=== PATIENT | male | born 1970 | race Caucasian/White ===

== ENCOUNTER 2020-06-19 09:23 | Emergency (ER) | payer OTHER, SELFPAY ==
--- NOTE | 2020-06-19 09:30 | ED_ITS ---
HPI - Abdominal Pain General Chief Complaint: Abdominal Pain Stated Complaint: ABDOMINAL PAIN Time Seen by Provider: 06/19/20 09:30 History of Present Illness HPI narrative: 50-year-old gentleman with a history of hyperlipidemia and is otherwise healthy. He woke last night with left lower quadrant pain that is getting progressively worse. This point he describes it as tolerable worse when he is up and moving but concerning and consistently notable. He describes no fevers, cough, chest pain, dyspnea, vomiting or diarrhea. He notes a normal bowel movement this morning that did not influences pain. He has had no blood in his stools. There is no dysuria or urgency Related Data Home Medications Medication Instructions Recorded Confirmed aspirin 81 mg tablet,delayed 81 mg PO DAILY 06/19/20 06/19/20 release atorvastatin 40 mg tablet 40 mg PO DAILY 06/19/20 06/19/20 Previous Rx's Medication Instructions Recorded amoxicillin-pot clavulanate 1 tab PO BID #20 tab 06/19/20 [Augmentin] Allergies Allergy/AdvReac Type Severity Reaction Status Date / Time No Known Drug Allergies Allergy Verified 06/19/20 09:34 Review of Systems Review of Systems Narrative: Remainder of review of systems including constitutional, ENT, cardiovascular, respiratory, GI, , musculoskeletal, skin, neurologic and psychiatric systems reviewed and are unremarkable except as noted in HPI. Patient History Medical History Hyperlipidemia Social History Smoking Status: Never smoker Smoking Status: Never smoker Exam Narrative Exam Narrative: General: Healthy appearing, in no acute distress. Able to give a complete and coherent history. Well-nourished well-developed HEENT: Moist mucous membranes, normal sclera with reactive pupils, Neck: No JVD, supple Respiratory: Lungs are clear to auscultation, no wheezing no rales no rhonchi. Full and symmetrical air movement Cardiac: Regular rate and rhythm no murmurs no bruits Abdomen: Soft, mild guarding without rebound and tenderness in the left lower quadrant, good bowel tones, no flank pain Skin: Warm and dry, no rashes Neurologic: Grossly neurologically intact with no obvious asymmetries or abnormalities Extremities: No trauma, well perfused Psych: Cooperative, appropriate insight and affect Initial Vital Signs Initial Vital Signs: Vital Signs Temperature 98.3 F 06/19/20 09:34 Pulse Rate 77 06/19/20 09:34 Respiratory Rate 18 06/19/20 09:34 Blood Pressure 155/95 H 06/19/20 09:34 Pulse Oximetry 99 06/19/20 09:34 Course Orders Ordered: ED Orders 06/19/20 09:43 CT abdomen pelvis w con Stat 06/19/20 09:50 Complete Blood Count AUTO DIFF Stat Comprehensive Metabolic Panel Stat Lactate (Lactic Acid) Stat Lipase Stat Amoxicillin/Clavulanate Potassium (Amoxicillin/Clav 875/125 Mg) 1 tab PO NOW ONE Stop: 06/19/20 11:13 Vital Signs Vital signs: Vital Signs - 8 hr 06/19/20 09:34 06/19/20 11:04 Temperature 98.3 F Pulse Rate 77 66 Respiratory Rate 18 16 Blood Pressure 155/95 H 139/87 Pulse Oximetry 99 98 MDM - Abdominal Pain Medical Records Attestation: I reviewed the patient's medical records. Lab Data Attestation: I reviewed the patient's lab results. Result diagrams: 06/19/20 09:50 06/19/20 09:50 Labs: Lab Results 06/19/20 06/19/20 06/19/20 Range/Units 09:50 09:50 09:50 WBC 13.1 H (4.5-11.0) X10^3/uL RBC 5.33 (4.5-5.9) X10^6/uL Hgb 15.2 (13.5-17.5) g/dL Hct 45.1 (41-53) % MCV 84.7 (80-100) fL MCH 28.5 (26-34) PG MCHC 33.7 (30-36) % RDW 12.8 (11.6-14.8) % Plt Count 202 (150-400) X10^3/uL Neut % (Auto) 78.3 H (50-75) % Lymph % (Auto) 11.2 L (25-40) % [place] % (Auto) 9.2 (3-14) % Eos % (Auto) 0.6 L (2-4) % Baso % (Auto) 0.7 (0-2) % Neut # (Auto) 50141 H (9196-2236) /uL Lymph # (Auto) 1500 (0479-9295) /uL [place] # (Auto) 1200 H (0-900) /uL Eos # (Auto) 100 (0-450) /uL Baso # (Auto) 100 (0-100) /uL Sodium 137 (137-145) mmol/L Potassium 4.3 (3.4-5.1) mmol/L Chloride 103 (98-107) mmol/L Carbon Dioxide 27 (22-32) mmol/L BUN 15 (9-20) mg/dL Creatinine 0.77 (0.66-1.25) mg/dL Estimated GFR > 60.0 (>60) mL/min BUN/Creatinine Ratio 19.5 (6-22) Glucose 118 H (70-100) mg/dL Lactate 1.6 (0.7-2.1) mmol/L Calcium 9.2 (8.4-10.2) mg/dL Total Bilirubin 1.0 (0.2-1.3) mg/dL AST 30 (17-59) IU/L ALT 49 (<50) IU/L Alkaline Phosphatase 128 H (38-126) U/L Total Protein 7.8 (6.3-8.2) g/dL Albumin 4.4 (3.5-5.0) g/dL Globulin 3.4 (1.7-4.1) g/dL Albumin/Globulin Ratio 1.3 (1.0-2.8) Lipase 43 (23-300) U/L Point of care testing: Urine Dip Bedside Urine Glucose Negative Bedside Urine Bilirubin - Negative Bedside Urine Ketone - Negative Urine Specific [place] 1.015 Bedside Urine Occult Blood - Negative Bedside Urine pH 7.0 Bedside Urine Protein - Negative Bedside Urine Urobilinogen - Negative Bedside Urine Nitrite - Negative Bedside Urine Leukocytes - Negative Esterase Imaging Data CT scan - abdomen/pelvis: Radiologist's Impression: FINDINGS: Image quality: Excellent. ABDOMEN: Lung bases: Lung bases are clear. Heart size is normal. Solid organs: Geographic areas of fatty infiltration are seen in the liver. Gallbladder appears normal. Biliary system is non dilated. Pancreas enhances normally. S pleen is normal in size and enhancement. No adrenal nodules. Kidneys demonstrate normal size and enhancement, without hydronephrosis. Peritoneum and bowel: Multiple diverticula are seen in the colon. There is inflammatory fat stranding surrounding a diverticulum in the left lower quadrant at the junction of the descending and sigmoid colon with associated bowel wall thickening, compatible with acute diverticulitis. No focal fluid collection is seen. There is no pneumoperitoneum. There are no signs of bowel obstruction. The appendix appears normal. Nodes and vessels: No retroperitoneal or mesenteric adenopathy by size criteria. Aorta and inferior vena cava are normal in size. Atherosclerotic calcifications are seen in the aorta. Miscellaneous: A tiny fat containing periumbilical hernia is present. PELVIS: Genitourinary: Bladder wall thickness is normal. Miscellaneous: A small fat containing left inguinal hernia is present. No pelvic adenopathy. Bones: No suspicious bony lesions. No vertebral body compression fractures. IMPRESSION: Uncomplicated diverticulitis at the junction of the descending and sigmoid colon. Dictated by: Jsoe Lal M.D. on 06/19/2020 at 10:56 MDM Narrative Medical decision making narrative: 50-year-old gentleman with left lower quadran t pain. History, labs, CT scan are all consistent with an uncomplicated diverticulitis. No evidence for appendicitis, kidney stone, sepsis or other life-threatening etiology. Be placed on amoxicillin/clavulanate for 10 days with instructions to return should symptoms worsen. Discharge Plan Departure Patient Disposition: Home Clinical Impression: Diverticulitis Instructions: DI for Diverticulitis Activity Restrictions/Additional Instructions: Thank you for coming in today You have a case of uncomplicated diverticulitis that should improve with antibiotics. You have been given your 1st dose of Augmentin here in the emergency department and need to complete the 10 day course as prescribed. If you have increasing fevers, pain or develop new or other concerning symptoms it is appropriate to return to the emergency room for further evaluation. Prescriptions: New amoxicillin-pot clavulanate [Augmentin] 875-125 mg tablet 1 tab PO BID Qty: 20 RF: 0 No Action atorvastatin 40 mg tablet 40 mg PO DAILY RF: 0 aspirin [Adult Low Dose Aspirin] 81 mg tablet,delayed release (DR/EC) 81 mg PO DAILY RF: 0 Referrals: Caroline Mccloud MD [Primary Care Provider] -
[2020-06-19 09:34] VITALS: BP 155/95; PULSE 77; RESP 18; TEMP 36.8; O2SAT 99; BMI 31.7
--- NOTE | 2020-06-19 09:43 | DI.CT.S_ITS ---
PROCEDURE: CT ABDOMEN PELVIS W CON INDICATIONS: acute LLQ pain TECHNIQUE: After the administration of intravenous contrast, 5 mm thick sections acquired from the diaphragm to the symphysis. 5 mm coronal and sagittal reformats were acquired. For radiation dose reduction, the following was used: automated exposure control, adjustment of mA and/or kV according to patient size. COMPARISON: None. FINDINGS: Image quality: Excellent. ABDOMEN: Lung bases: Lung bases are clear. Heart size is normal. Solid organs: Geographic areas of fatty infiltration are seen in the liver. Gallbladder appears normal. Biliary system is non dilated. Pancreas enhances normally. Spleen is normal in size and enhancement. No adrenal nodules. Kidneys demonstrate normal size and enhancement, without hydronephrosis. Peritoneum and bowel: Multiple diverticula are seen in the colon. There is inflammatory fat stranding surrounding a diverticulum in the left lower quadrant at the junction of the descending and sigmoid colon with associated bowel wall thickening, compatible with acute diverticulitis. No focal fluid collection is seen. There is no pneumoperitoneum. There are no signs of bowel obstruction. The appendix appears normal. Nodes and vessels: No retroperitoneal or mesenteric adenopathy by size criteria. Aorta and inferior vena cava are normal in size. Atherosclerotic calcifications are seen in the aorta. Miscellaneous: A tiny fat containing periumbilical hernia is present. PELVIS: Genitourinary: Bladder wall thickness is normal. Miscellaneous: A small fat containing left inguinal hernia is present. No pelvic adenopathy. Bones: No suspicious bony lesions. No vertebral body compression fractures. IMPRESSION: Uncomplicated diverticulitis at the junction of the descending and sigmoid colon. Dictated by: Jose Lal M.D. on 06/19/2020 at 10:56 Approved by: Jose Lal M.D. on 06/19/2020 at 11:01
[2020-06-19 09:54] LABS: Add Manual Diff / Slide Review NO; Basophils Absolute Auto 100 /uL (0-100); Basophils Percent Auto 0.7 % (0-2); Eosinophils Absolute Auto 100 /uL (0-450); Eosinophils Percent Auto 0.6 % (2-4); Hematocrit 45.1 % (41-53); Hemoglobin 15.2 g/dL (13.5-17.5); Lymphocytes Absolute Auto 1500 /uL (1100-4500); Lymphocytes Percent Auto 11.2 % (25-40); Mean Corpuscular HGB Conc 33.7 % (30-36); Mean Corpuscular Hemoglobin 28.5 PG (26-34); Mean Corpuscular Volume 84.7 fL (80-100); Monocytes Absolute Auto 1200 /uL (0-900); Monocytes Percent Auto 9.2 % (3-14); Neutrophils Absolute Auto 10200 /uL (1500-7000); Neutrophils Percent Auto 78.3 % (50-75); Platelet Count 202 X10^3/uL (150-400); Red Blood Cell Count 5.33 X10^6/uL (4.5-5.9); Red Cell Distribution Width 12.8 % (11.6-14.8); White Blood Cell Count 13.1 X10^3/uL (4.5-11.0)
[2020-06-19 10:06] LABS: Alanine Aminotransferase 49 IU/L (<50); Albumin 4.4 g/dL (3.5-5.0); Albumin Globulin Ratio 1.3 (1.0-2.8); Alkaline Phosphatase 128 U/L (38-126); Aspartate Aminotransferase 30 IU/L (17-59); BUN Creatinine Ratio 19.5 (6-22); Blood Urea Nitrogen 15 mg/dL (9-20); Calcium 9.2 mg/dL (8.4-10.2); Carbon Dioxide 27 mmol/L (22-32); Chloride 103 mmol/L (98-107); Estimated Glomerular Filt Rate > 60.0 mL/min (>60); Globulin 3.4 g/dL (1.7-4.1); Glucose 118 mg/dL (70-100); HEMOLYSIS < 15 (0-50); Lipase 43 U/L (23-300); Potassium 4.3 mmol/L (3.4-5.1); Sodium 137 mmol/L (137-145); Total Protein 7.8 g/dL (6.3-8.2)
[2020-06-19 10:07] LABS: Lactate (Lactic Acid) 1.6 mmol/L (0.7-2.1)
[2020-06-19 11:04] VITALS: BP 139/87; PULSE 66; PULSE 67; RESP 16; RESP 18; O2SAT 98; O2SAT 99
[2020-06-19 11:30] VITALS: BP 138/91; PULSE 69; RESP 18; O2SAT 97
[2020-06-19] MEDS: AMOXICILLIN/CLAV 875/125 MG 1 TAB PO (11:30)
== END 2020-06-19 11:53 | disposition home or self-care (01) ==
PROVIDERS: Emergency Provider Emergency Medicine; PCP Internal Medicine
DX: K57.92 Diverticulitis of intestine, part unspecified, without perforation or abscess without bleeding (principal); E78.5 Hyperlipidemia, unspecified
CPT/HCPCS: 36415; 74177; 80053; 81003; 83605; 83690; 85025; 99283; 99284; Q9967

== ENCOUNTER → 2020-06-24 18:49 | Outpatient (ROUT) | payer OTHER, SELFPAY ==
[2020-06-24 19:30] LABS: Alanine Aminotransferase 64 IU/L (<50); Albumin 4.6 g/dL (3.5-5.0); Albumin Globulin Ratio 1.5 (1.0-2.8); Alkaline Phosphatase 128 U/L (38-126); Aspartate Aminotransferase 54 IU/L (17-59); BUN Creatinine Ratio 15.2 (6-22); Bilirubin Total 0.9 mg/dL (0.2-1.3); Blood Urea Nitrogen 12 mg/dL (9-20); Calcium 9.5 mg/dL (8.4-10.2); Carbon Dioxide 26 mmol/L (22-32); Chloride 104 mmol/L (98-107); Cholesterol 184 mg/dL (140-199); Estimated Glomerular Filt Rate > 60.0 mL/min (>60); Globulin 3.1 g/dL (1.7-4.1); Glucose 108 mg/dL (70-100); HDL Cholesterol 36 mg/dL (40-60); HEMOLYSIS < 15 (0-50); LDL Cholesterol Calculated 103 mg/dL (<100); Potassium 4.2 mmol/L (3.4-5.1); Sodium 138 mmol/L (137-145); Total Protein 7.7 g/dL (6.3-8.2); Triglycerides 223 mg/dL (35-150)
[2020-06-24 20:01] LABS: Prostate Specific Antigen Scrn 0.341 ng/mL (0.1-4.0)
== END ==
PROVIDERS: PCP Internal Medicine; Visit Provider Internal Medicine
DX: Z13.1 Encounter for screening for diabetes mellitus (principal); Z12.5 Encounter for screening for malignant neoplasm of prostate; E78.2 Mixed hyperlipidemia
CPT/HCPCS: 80053; 80061; G0103

== ENCOUNTER 2021-01-31 18:39 | Emergency (ER) | payer OTHER, SELFPAY ==
[2021-01-31] VITALS (8 sets, daily range): BP systolic 136–154; BP diastolic 80–97; PULSE 77–98; RESP 18; TEMP 36.7; O2SAT 94–97; BMI 30.6
--- NOTE | 2021-01-31 19:04 | PC.NURSE ---
Recent diverticulitis, completed antibiotics.
[2021-01-31 19:17] LABS: Add Manual Diff / Slide Review NO; Basophils Absolute Auto 100 /uL (0-100); Basophils Percent Auto 0.6 % (0-2); Eosinophils Absolute Auto 100 /uL (0-450); Eosinophils Percent Auto 0.6 % (2-4); Hematocrit 47.5 % (41-53); Hemoglobin 16.1 g/dL (13.5-17.5); Lymphocytes Absolute Auto 700 /uL (1100-4500); Mean Corpuscular HGB Conc 33.8 % (30-36); Mean Corpuscular Hemoglobin 28.7 PG (26-34); Mean Corpuscular Volume 85.1 fL (80-100); Monocytes Absolute Auto 600 /uL (0-900); Monocytes Percent Auto 5.5 % (3-14); Neutrophils Absolute Auto 9700 /uL (1500-7000); Neutrophils Percent Auto 87.3 % (50-75); Platelet Count 167 X10^3/uL (150-400); Red Blood Cell Count 5.59 X10^6/uL (4.5-5.9); Red Cell Distribution Width 12.5 % (11.6-14.8); White Blood Cell Count 11.1 X10^3/uL (4.5-11.0)
[2021-01-31 19:25] LABS: Alanine Aminotransferase 47 IU/L (<50); Albumin 4.5 g/dL (3.5-5.0); Albumin Globulin Ratio 1.4 (1.0-2.8); Alkaline Phosphatase 98 U/L (38-126); Aspartate Aminotransferase 36 IU/L (17-59); BUN Creatinine Ratio 14.7 (6-22); Blood Urea Nitrogen 10 mg/dL (9-20); Calcium 9.9 mg/dL (8.4-10.2); Carbon Dioxide 21 mmol/L (22-32); Chloride 105 mmol/L (98-107); Estimated Glomerular Filt Rate > 60.0 mL/min (>60); Globulin 3.2 g/dL (1.7-4.1); Glucose 144 mg/dL (70-100); HEMOLYSIS < 15 (0-50); Potassium 4.1 mmol/L (3.4-5.1); Sodium 137 mmol/L (137-145); Total Protein 7.7 g/dL (6.3-8.2)
[2021-01-31 19:33] LABS: COVID19 -Nasal RAPID Negative (Negative)
--- NOTE | 2021-01-31 19:38 | ED_ITS ---
HPI - Nausea/Vomiting/Diarrhea General Chief complaint: Nausea/Vomiting/Diarrhea Stated complaint: Dizzy and Weak Time Seen by Provider: 01/31/21 19:04 Source: patient Mode of arrival: Ambulatory Limitations: no limitations History of Present Illness HPI Narrative: Patient is a 50-year-old male who presents with generalized weakness and fatigue today he feels a little nauseous slightly dizzy. No weakness numbness or tingling. He has not vomited. He did just finish course of antibiotics for diverticulitis. He denies any chest pain or palpitations. He said decreased appetite today. He is COVID vaccinated. He has no significant abdominal pain he says his diverticulitis symptoms have overall gotten better. Related Data Home Medications Medication Instructions Recorded Confirmed aspirin 81 mg tablet,delayed 81 mg PO DAILY 06/19/20 06/19/20 release (Adult Low Dose Aspirin) atorvastatin 40 mg tablet 40 mg PO DAILY 06/19/20 06/19/20 Previous Rx's Medication Instructions Recorded amoxicillin 875 mg-potassium 1 tab PO BID #20 tab 06/19/20 clavulanate 125 mg tablet (Augmentin) Allergies Allergy/AdvReac Type Severity Reaction Status Date / Time No Known Drug Allergies Allergy Verified 01/31/21 18:51 Review of Systems Review of Systems Narrative: GENERAL: See HPI denies fever HEENT: Denies sinus pain, ear pain, sore throat, difficulty swallowing, neck emiliano n RESPIRATORY: Denies dyspnea, cough, wheezing, hemoptysis, sputum. CARDIOVASCULAR: Denies chest pain, palpitations, orthopnea, edema GASTROINTESTINAL: See HPI : Denies dysuria, frequency, incontinence, hematuria, urinary retention, flank pain. MUSCULOSKELETAL: Denies weakness, joint pain, or bony pain SKIN: No rash, no erythema, no pruritus NEUROLOGIC: Denies weakness, dizziness, headache, numbness, change in speech, confusion PSYCHIATRIC: No concerning psychosocial issues. 12 point review of systems is negative except for those stated above and HPI Patient History Medical History Hyperlipidemia Social History Smoking Status: Never smoker Smoking Status: Never smoker alcohol intake frequency: 0-2 drinks per day Substance Use Type: does not use Exam Initial Vital Signs Initial Vital Signs: Vital Signs Pulse Rate 98 H 01/31/21 18:45 Pulse Oximetry 97 01/31/21 18:45 GENERAL: Alert well-appearing 50-year-old male and in no acute distress. HEENT: Head atraumatic,EOMI, pupils reactive, face symmetric, moist mucous membranes CARDIOVASCULAR: Regular rate and rhythm without murmurs, rubs or gallops. RESPIRATORY: Breath sounds equal bilaterally, no wheezes rales or rhonchi. ABDOMEN: Soft, minimal tenderness no guarding or rebound EXTREMITIES: Normal range of motion, no clubbing or edema. Neurovascularly intact NEUROLOGICAL: Alert and oriented x4.Normal gait and speech. SKIN: Warm, dry, no laceration, no petechiae, no rashes or lesions. Course Orders Ordered: ED Orders 01/31/21 18:50 Complete Blood Count AUTO DIFF Stat Comprehensive Metabolic Panel Stat Lipase Stat 01/31/21 19:12 EKG-12 Lead Stat 01/31/21 19:16 COVID19 -Nasal swab/Pre-Proc Stat Discontinued Medications Sodium Chloride (Normal Saline 0.9%) 1,000 mls @ 1,000 mls/hr IV BOLUS ONE Stop: 01/31/21 20:42 Last Infusion: 01/31/21 21:11 Dose: 0 mls/hr Documented by: Admin: 01/31/21 19:48 Dose: 1,000 mls/hr Documented by: DARNELL Ondansetron HCl (Ondansetron 4 Mg/2 Ml Inj) 4 mg IV NOW ONE Stop: 01/31/21 19:45 Last Admin: 01/31/21 19:48 Dose: 4 mg Documented by: DARNELL Vital Signs Vital signs: Vital Signs - 8 hr 01/31/21 18:45 01/31/21 18:46 01/31/21 18:51 Temperature 98.1 F Pulse Rate 98 H 93 H 92 H Respiratory Rate 18 Blood Pressure 141/93 H 141/93 H Pulse Oximetry 97 97 97 01/31/21 19:00 01/31/21 19:30 01/31/21 20:00 Temperature Pulse Rate 90 92 H 83 Respiratory Rate Blood Pressure 154/97 H 142/87 H 142/85 H Pulse Oximetry 95 94 94 01/31/21 20:30 01/31/21 21:00 Temperature Pulse Rate 77 80 Respiratory Rate Blood Pressure 139/84 136/80 Pulse Oximetry 97 95 MDM - Nausea/Vomiting/Diarrhea Lab Data Result diagrams: 01/31/21 18:50 01/31/21 18:50 Labs: Lab Results 01/31/21 01/31/21 01/31/21 Range/Units 18:50 18:50 18:50 WBC 11.1 H (4.5-11.0) X10^3/uL RBC 5.59 (4.5-5.9) X10^6/uL Hgb 16.1 (13.5-17.5) g/dL Hct 47.5 (41-53) % MCV 85.1 (80-100) fL MCH 28.7 (26-34) PG MCHC 33.8 (30-36) % RDW 12.5 (11.6-14.8) % Plt Count 167 (150-400) X10^3/uL Neut % (Auto) 87.3 H (50-75) % Lymph % (Auto) 6.0 L (25-40) % [place] % (Auto) 5.5 (3-14) % Eos % (Auto) 0.6 L (2-4) % Baso % (Auto) 0.6 (0-2) % Neut # (Auto) 9700 H (4449-8795) /uL Lymph # (Auto) 700 L (6075-2692) /uL [place] # (Auto) 600 (0-900) /uL Eos # (Auto) 100 (0-450) /uL Baso # (Auto) 100 (0-100) /uL Sodium 137 (137-145) mmol/L Potassium 4.1 (3.4-5.1) mmol/L Chloride 105 (98-107) mmol/L Carbon Dioxide 21 L (22-32) mmol/L BUN 10 (9-20) mg/dL Creatinine 0.68 (0.66-1.25) mg/dL Estimated GFR > 60.0 (>60) mL/min BUN/Creatinine Ratio 14.7 (6-22) Glucose 144 H (70-100) mg/dL Calcium 9.9 (8.4-10.2) mg/dL Total Bilirubin 1.0 (0.2-1.3) mg/dL AST 36 (17-59) IU/L ALT 47 (<50) IU/L Alkaline Phosphatase 98 (38-126) U/L Total Protein 7.7 (6.3-8.2) g/dL Albumin 4.5 (3.5-5.0) g/dL Globulin 3.2 (1.7-4.1) g/dL Albumin/Globulin Ratio 1.4 (1.0-2.8) Lipase 55 (23-300) U/L SARS-CoV-2 (PCR) (Negative) 01/31/21 Range/Units 19:16 WBC (4.5-11.0) X10^3/uL RBC (4.5-5.9) X10^6/uL Hgb (13.5-17.5) g/dL Hct (41-53) % MCV (80-100) fL MCH (26-34) PG MCHC (30-36) % RDW (11.6-14.8) % Plt Count (150-400) X10^3/uL Neut % (Auto) (50-75) % Lymph % (Auto) (25-40) % [place] % (Auto) (3-14) % Eos % (Auto) (2-4) % Baso % (Auto) (0-2) % Neut # (Auto) (0755-4663) /uL Lymph # (Auto) (3385-2627) /uL [place] # (Auto) (0-900) /uL Eos # (Auto) (0-450) /uL Baso # (Auto) (0-100) /uL Sodium (137-145) mmol/L Potassium (3.4-5.1) mmol/L Chloride (98-107) mmol/L Carbon Dioxide (22-32) mmol/L BUN (9-20) mg/dL Creatinine (0.66-1.25) mg/dL Estimated GFR (>60) mL/min BUN/Creatinine Ratio (6-22) Glucose (70-100) mg/dL Calcium (8.4-10.2) mg/dL Total Bilirubin (0.2-1.3) mg/dL AST (17-59) IU/L ALT (<50) IU/L Alkaline Phosphatase (38-126) U/L Total Protein (6.3-8.2) g/dL Albumin (3.5-5.0) g/dL Globulin (1.7-4.1) g/dL Albumin/Globulin Ratio (1.0-2.8) Lipase (23-300) U/L SARS-CoV-2 (PCR) Negative (Negative) ECG Data Interpretation: Normal sinus rhythm rate 98 NE interval 164 QRS [address] changes or T-wave inversions MDM Narrative Medical decision making narrative: Patient is feeling much better after IV fluids he is keeping p.o. fluids down as well. He feels like he is hungry and feels ready in able to go home. No real explanation for his symptoms today. I do recommend that if he is still feeling fatigued and run down that he have a repeat COVID test next week at 1 of the testing facility Discharge Plan Departure Patient Disposition: Home Clinical Impression: Dizziness Instructions: Dizziness, Nonvertigo Activity Restrictions/Additional Instructions: * it is unclear what is causing her symptoms today. Blood work and EKG are overall reassuring. *What to do: Continue to increase fluid intake he may eat and increase diet as tolerated. If you are still feeling extremely fatigued or having fevers consid er having a repeat COVID test next week *Continue to take medications as directed *Follow up with your primary care provider in 2-3 days *Return to ER if you should have increasing dizziness, weakness, numbness, tingling, chest pain, palpitations, low oxygen, cough or any new, worsening or concerning symptoms Prescriptions: No Action atorvastatin 40 mg tablet 40 mg PO DAILY RF: 0 aspirin [Adult Low Dose Aspirin] 81 mg tablet,delayed release (DR/EC) 81 mg PO DAILY RF: 0 amoxicillin-pot clavulanate [Augmentin] 875-125 mg tablet 1 tab PO BID Qty: 20 RF: 0 Referrals: Caroline Mccloud MD [Primary Care Provider] -
[2021-01-31] MEDS: SODIUM CHLORIDE 0.9% 1,000 ML 1000 ML IV (19:48)
[2021-01-31] MEDS: ONDANSETRON 4 MG/2 ML INJ IV (19:48)
[2021-01-31 19:57] LABS: Lipase 55 U/L (23-300)
== END 2021-01-31 21:28 | disposition home or self-care (01) ==
PROVIDERS: Emergency Provider Emergency Medicine; PCP Internal Medicine
DX: R42 Dizziness and giddiness (principal); R53.83 Other fatigue; R11.0 Nausea; R53.1 Weakness
CPT/HCPCS: 36415; 80053; 83690; 85025; 87635; 93005; 93010; 96361; 96374; 99284; C9803; J2405

== ENCOUNTER → 2023-02-24 13:15 | Outpatient (CLI) | payer OTHER, SELFPAY ==
[2023-02-24 13:57] LABS: Influenza A - CEPHEID Flu A NEGATIVE (NEGATIVE); Influenza B - CEPHEID Flu B NEGATIVE (NEGATIVE); Respiratory Syncytial Virus Negative (Negative)
[2023-02-24 14:01] LABS: COVID-19 CEPHEID 4-PLEX PCR POSITIVE (Negative)
== END ==
PROVIDERS: Visit Provider Physician Assistant
DX: R05.1 Acute cough (principal)
CPT/HCPCS: 0241U

== ENCOUNTER 2025-05-28 12:47 | Emergency (ER) | payer OTHER, SELFPAY ==
[2025-05-28 13:34] VITALS: BP 149/88; PULSE 69; RESP 16; TEMP 36.1; O2SAT 99; BMI 32.5
--- NOTE | 2025-05-28 13:37 | ED.ABDPAIN ---
HPI - Abdominal Pain General Chief Complaint: Abdominal Pain Stated Complaint: Lower Abdominal pain 7 days Time Seen by Provider: 05/28/25 13:37 History of Present Illness HPI narrative: Patient drove self here from work complaints left lower quadrant for the past 1 week. No nausea or vomiting or urinary complaints no black or bloody stools. Patient states has history of diverticulitis and feels the same again. Pain does not radiate. Last episode in March and was treated with Augmentin by primary care. No recent CT imaging. Related Data Home Medications ?Medication ?Instructions ?Recorded ?Confirmed aspirin 81 mg tablet,delayed 81 mg PO DAILY 06/19/20 05/28/25 release (Adult Low Dose Aspirin) atorvastatin 40 mg tablet 40 mg PO DAILY 06/19/20 05/28/25 Previous Rx's ?Medication ?Instructions ?Recorded ciprofloxacin HCl 500 mg tablet 500 mg PO BID #14 tabs 05/28/25 (Cipro) metronidazole 500 mg tablet 500 mg PO TID #21 tabs 05/28/25 Allergies Allergy/AdvReac Type Severity Reaction Status Date / Time No Known Drug Allergies Allergy Verified 03/14/25 11:38 Review of Systems Review of Systems Narrative: GENERAL: Negative chills, fatigue, malaise, fever, sweats. HEENT: Negative sinus pain, ear pain, sore throat RESPIRATORY: Negative dyspnea, cough CARDIOVASCULAR: Negative chest pain, palpitations GASTROINTESTINAL: Negative vomiting, nausea, positive abdominal pain : Negative dysuria, frequency, hematuria MUSCULOSKELETAL: Negative muscle or bony pain SKIN: Negative rash, skin lesions NEUROLOGIC: Negative weakness, numbness ROS Unobtainable: All systems reviewed & are unremarkable except as noted in HPI and below Patient History Medical History Hyperlipidemia alcohol intake frequency: 0-2 drinks per day Exam Narrative Exam Narrative: GENERAL: in no distress, not toxic not dyspneic HEAD: Normocephalic. EYES: Pupils equal round ENT: Mucous membranes moist. NECK: Trachea midline. CARDIOVASCULAR: Regular rate and rhythm RESPIRATORY: Clear to auscultation. Breath sounds equal bilaterally. No wheezes, rales, or rhonchi. GASTROINTESTINAL: Abdomen soft, reproducible left lower quadrant tenderness. No peritoneal signs no guarding or rebound. No CVA tenderness. Bowel sounds are present. BACK: No flank tenderness. EXTREMITIES: No gross deformities. NEURO: AOx4. Clear speech SKIN: Warm and dry PSYCH: Not anxious, is cooperative Initial Vital Signs Initial Vital Signs: Vital Signs Temperature 96.9 F L 05/28/25 13:34 Pulse Rate 69 05/28/25 13:34 Respiratory Rate 16 05/28/25 13:34 Blood Pressure 149/88 H 05/28/25 13:34 Pulse Oximetry 99 05/28/25 13:34 Oxygen Delivery Method Room Air 05/28/25 13:34 Course Orders Ordered: ED Orders 05/28/25 13:49 CBC Auto Diff [Complete Blood Count AUTO DIFF] Stat CMP [Comprehensive Metabolic Panel] Stat 05/28/25 14:07 CT abdomen pelvis w con Stat Discontinued Medications Ciprofloxacin (Ciprofloxacin 250 Mg Tablet) 500 mg PO NOW ONE Stop: 05/28/25 14:45 Sodium Chloride (Normal Saline 0.9%) 1,000 mls @ 1,000 mls/hr IV BOLUS ONE Stop: 05/28/25 15:08 Last Admin: 05/28/25 14:43 Dose: 1,000 mls/hr Metronidazole (Metronidazole 500 Mg Tablet) 500 mg PO NOW ONE Stop: 05/28/25 14:45 Vital Signs Vital signs: Vital Signs - 8 hr 05/28/25 13:34 05/28/25 14:47 05/28/25 14:49 Temperature 96.9 F L Pulse Rate 69 61 61 Respiratory Rate 16 Blood Pressure 149/88 H Pulse Oximetry 99 99 100 Oxygen Delivery Method Room Air 05/28/25 14:49 05/28/25 15:00 05/28/25 15:00 Temperature Pulse Rate 64 Respiratory Rate 16 Blood Pressure 146/91 H 138/79 Pulse Oximetry 97 Oxygen Delivery Method MDM - Abdominal Pain Lab Data 05/28/25 13:49 05/28/25 13:49 Labs: Lab Results 05/28/25 Range/Units 13:49 WBC 7.8 (4.5-11.0) X10^3/uL RBC 5.51 (4.5-5.9) X10^6/uL Hgb 15.6 (13.5-17.5) g/dL Hct 45.9 (41-53) % MCV 83.4 (80-100) fL MCH 28.3 (26-34) PG MCHC 33.9 (30-36) % RDW 13.0 (11.6-14.8) % Plt Count 203 (150-400) X10^3/uL Neut % (Auto) 57.9 (50-75) % Lymph % (Auto) 29.2 (25-40) % [place] % (Auto) 10.0 (3-14) % Eos % (Auto) 1.7 L (2-4) % Baso % (Auto) 1.2 (0-2) % Neut # (Auto) 4500 (0953-3312) /uL Lymph # (Auto) 2300 (0392-4472) /uL [place] # (Auto) 800 (0-900) /uL Eos # (Auto) 100 (0-450) /uL Baso # (Auto) 100 (0-100) /uL Sodium 139 (137-145) mmol/L Potassium 3.8 (3.4-5.1) mmol/L Chloride 103 (98-107) mmol/L Carbon Dioxide 25 (22-32) mmol/L BUN 13 (9-20) mg/dL Creatinine 0.82 (0.66-1.25) mg/dL Estimated GFR > 60 (>60) mL/min BUN/Creatinine Ratio 15.9 (6-22) Glucose 118 H (70-99) mg/dL Calcium 9.2 (8.4-10.2) mg/dL Total Bilirubin 1.0 (0.2-1.3) mg/dL AST 40 (17-59) IU/L ALT 49 (<50) IU/L Alkaline Phosphatase 106 (38-126) U/L Total Protein 8.0 (6.3-8.2) g/dL Albumin 4.7 (3.5-5.0) g/dL Globulin 3.3 (1.7-4.1) g/dL Albumin/Globulin Ratio 1.4 (1.0-2.8) Imaging Data CT scan - abdomen/pelvis: Radiologist's Impression: [address] [address] [address] Scan Report Signed Patient: Andres Bashir MR#: [id number] : 1970 Acct:[id number] Age/Sex: 55 / M Date of Service: 05/28/25 Loc: ED Accession Number: [id number] Procedure: CT abdomen pelvis w con Ordering Provider: Ventura Ramírez MD PROCEDURE: CT ABDOMEN PELVIS W CON INDICATIONS: Left lower quadrant pain TECHNIQUE: After the administration of intravenous contrast, axial sections acquired from the lung bases to the pubic symphysis. Coronal and sagittal reformats were performed. For radiation dose reduction, the following was used: automated exposure control, adjustment of mA and/or kV according to patient size. COMPARISON: [facility], CT, CT ABDOMEN PELVIS W CON, 06/19/2020, 10:34. FINDINGS: Image quality: Diagnostic. Lower Chest: No significant findings. ABDOMEN: Liver: Liver is enlarged measuring 23.1 cm with steatosis. Gallbladder: No radiopaque gallstones or wall thickening. Biliary ducts: No biliary dilation. Pancreas: No ductal dilation. Spleen: Size is within normal limits. Adrenal Glands: No adrenal nodules. Kidneys and Ureters: No hydronephrosis. No solid mass. No complex renal cystic lesion which requires follow up. Stomach and Bowel: Normal colonic caliber, without significant wall thickening. Hiatal hernia. Appendix is normal. Very minimal diverticula with a single focus area of minimal Emelyn diverticular inflammation of the left colon seen on series 2, image 18. Peritoneum: No abnormal intraperitoneal fluid. No free air. Ventral Wall: Small fat containing ventral hernia. Abdominal Nodes: No retroperitoneal or mesenteric adenopathy by size criteria. Vessels: Aorta and inferior vena cava are normal in size. PELVIS: Pelvic Organs: Unremarkable. Bladder: No bladder wall thickening, accounting for underdistention. Pelvic Nodes: No enlarged lymph nodes. Miscellaneous: No inguinal hernias are seen. Bones: No aggressive osseous abnormality. IMPRESSION: Diverticula with a very minimal focal area of Emelyn diverticular stranding. Very early colitis cannot be definitively excluded. Dictated by: Sherry Ponce M.D. on 05/28/2025 at 14:15 Approved by: Sherry Ponce M.D. on 05/28/2025 at 14:17 [facility] Narrative Medical decision making narrative: Patient drove self here from work complaints left lower quadrant for the past 1 week. No nausea or vomiting or urinary complaints no black or bloody stools. Patient states has history of diverticulitis and feels the same again. Pain does not radiate. Last episode in March and was treated with Augmentin by primary care. No recent CT imaging. MDM After history and exam, CBC CMP normal saline CT abdomen pelvis Differential considered: Includes but not limited to diverticulitis diverticulosis bowel obstruction colitis kidney stone Medical records reviewed: ER notes here June 19, 2020 Lab Test results independently reviewed as above. Pertinent findings: WBC 7 point hemoglobin 15.6 sodium 139 potassium 3.8 BUN 13 creatinine 0.82 Imaging studies independently reviewed: CT abdomen pelvis likely diverticulitis Consultations: None indicated at this time Re-evaluations: 2:45 p.m.. Updated patient results. Being treated for diverticulitis. Referral for General surgery for outpatient colonoscopy provided. Pain is controlled. Work note provided. He desires discharge home. Patient understands to not drink alcohol with these prescriptions as it will make him sick. Discussion: Appropriate for discharge home. Exam is reassuring. Return precautions reviewed with patient. Not toxic at discharge pain is controlled. He desires discharge home. IV contrast used for CT imaging Diagnosis: Acute diverticulitis Discharge Plan Departure Patient Disposition: Home Clinical Impression: Diverticulitis Instructions: DI for Diverticulitis Activity Restrictions/Additional Instructions: You are being treated for diverticulitis. Prescription antibiotic has been sent here pharmacy to continue. Your 1st dose was given here today. Please call provided general surgery office for follow up appointment for colonoscopy. Return if worse if any questions or concerns. Your blood work and imaging studies are otherwise reassuring. Do not consume alcohol products while taking these medications/prescriptions. It will make you sick Prescriptions: New metronidazole 500 mg tablet 500 mg PO TID Qty: 21 0RF ciprofloxacin HCl [Cipro] 500 mg tablet 500 mg PO BID Qty: 14 0RF No Action atorvastatin 40 mg tablet 40 mg PO DAILY aspirin [Adult Low Dose Aspirin] 81 mg tablet,delayed release (DR/EC) 81 mg PO DAILY Referrals: Andres He MD [Physician, General Surgery] Stand Alone Forms: Patient Portal/API, Work Release Note
--- NOTE | 2025-05-28 14:07 | DI.CT.S_ITS ---
PROCEDURE: CT ABDOMEN PELVIS W CON INDICATIONS: Left lower quadrant pain TECHNIQUE: After the administration of intravenous contrast, axial sections acquired from the lung bases to the pubic symphysis. Coronal and sagittal reformats were performed. For radiation dose reduction, the following was used: automated exposure control, adjustment of mA and/or kV according to patient size. COMPARISON: [facility], CT, CT ABDOMEN PELVIS W CON, 06/19/2020, 10:34. FINDINGS: Image quality: Diagnostic. Lower Chest: No significant findings. ABDOMEN: Liver: Liver is enlarged measuring 23.1 cm with steatosis. Gallbladder: No radiopaque gallstones or wall thickening. Biliary ducts: No biliary dilation. Pancreas: No ductal dilation. Spleen: Size is within normal limits. Adrenal Glands: No adrenal nodules. Kidneys and Ureters: No hydronephrosis. No solid mass. No complex renal cystic lesion which requires follow up. Stomach and Bowel: Normal colonic caliber, without significant wall thickening. Hiatal hernia. Appendix is normal. Very minimal diverticula with a single focus area of minimal Emelyn diverticular inflammation of the left colon seen on series 2, image 18. Peritoneum: No abnormal intraperitoneal fluid. No free air. Ventral Wall: Small fat containing ventral hernia. Abdominal Nodes: No retroperitoneal or mesenteric adenopathy by size criteria. Vessels: Aorta and inferior vena cava are normal in size. PELVIS: Pelvic Organs: Unremarkable. Bladder: No bladder wall thickening, accounting for underdistention. Pelvic Nodes: No enlarged lymph nodes. Miscellaneous: No inguinal hernias are seen. Bones: No aggressive osseous abnormality. IMPRESSION: Diverticula with a very minimal focal area of Emelyn diverticular stranding. Very early colitis cannot be definitively excluded. Dictated by: Sherry Ponce M.D. on 05/28/2025 at 14:15 Approved by: Sherry Ponce M.D. on 05/28/2025 at 14:17
[2025-05-28 14:20] LABS: Add Manual Diff / Slide Review NO; Hematocrit 45.9 % (41-53); Hemoglobin 15.6 g/dL (13.5-17.5); Lymphocytes Absolute Auto 2300 /uL (1100-4500); Mean Corpuscular HGB Conc 33.9 % (30-36); Mean Corpuscular Hemoglobin 28.3 PG (26-34); Mean Corpuscular Volume 83.4 fL (80-100); Platelet Count 203 X10^3/uL (150-400)
[2025-05-28 14:23] LABS: Alanine Aminotransferase 49 IU/L (<50); Albumin 4.7 g/dL (3.5-5.0); Albumin Globulin Ratio 1.4 (1.0-2.8); Alkaline Phosphatase 106 U/L (38-126); Blood Urea Nitrogen 13 mg/dL (9-20); Calcium 9.2 mg/dL (8.4-10.2); Carbon Dioxide 25 mmol/L (22-32); Chloride 103 mmol/L (98-107); Estimated Glomerular Filt Rate > 60 mL/min (>60); Globulin 3.3 g/dL (1.7-4.1); Glucose 118 mg/dL (70-99); HEMOLYSIS 15 (0-50); Potassium 3.8 mmol/L (3.4-5.1); Sodium 139 mmol/L (137-145); Total Protein 8.0 g/dL (6.3-8.2)
[2025-05-28] MEDS: SODIUM CHLORIDE 0.9% 1,000 ML 1000 ML IV (14:43)
[2025-05-28 14:47] VITALS: PULSE 61; O2SAT 99
[2025-05-28 14:49] VITALS: BP 146/91; PULSE 61; O2SAT 100
[2025-05-28 15:00] VITALS: BP 138/79; PULSE 64; RESP 16; O2SAT 97
[2025-05-28] MEDS: CIPROFLOXACIN 250 MG TABLET 500 MG PO (15:12)
[2025-05-28 15:13] VITALS: BP 136/84; PULSE 63; O2SAT 99
== END 2025-05-28 15:17 | disposition home or self-care (01) ==
PROVIDERS: Emergency Provider Emergency Medicine
DX: K57.32 Diverticulitis of large intestine without perforation or abscess without bleeding (principal)
CPT/HCPCS: 36415; 74177; 80053; 85025; 96360; 99284; J7030; Q9967